=== PATIENT | male | born 1980 | race Caucasian/White ===

== ENCOUNTER 2019-06-27 07:46 | Day surgery (SDC) | payer OTHER ==
[~2019-06-27] VITALS: Ht 180.3 cm; Wt 93.0 kg
[~2019-06-27 07:46] MED LIST: VITAMIN D400 UNIT PO
--- NOTE | 2019-06-27 09:54 | NUR ---
06/27/19 0954 [address] 0941- PT ARRIVES TO PACU EASILY AROUSABLE TO VERBAL STIMULI. RESP EVEN AND UNLABORED. OXYGEN SAT HIGH 90'S TO 100% ON 3L VIA NC. PT REPORTS NO PAIN OR NAUSEA. 0954- OXYGEN TITRATED OFF.
--- NOTE | 2019-06-27 10:23 | OR ---
[facility] [address] [place], [place] [address] Signed DATE OF OPERATION: 06/27/2019 SURGEON: Tian Logan MD PREOPERATIVE DIAGNOSES: 1. Intermittent rectal bleeding. 2. Aunt with unspecified colitis. 3. Alternating constipation and diarrhea. 4. Left-sided abdominal pain. POSTOPERATIVE DIAGNOSIS: Minimal internal hemorrhoids. PROCEDURE: Colonoscopy with random colon biopsies. ESTIMATED BLOOD LOSS: None. INDICATIONS: Jerry is a 39-year-old gentleman, who as far back as 2002, has had at least three episodes of rectal bleeding. He describes a sigmoidoscopy in the office without sedation after an enema while he lived in [place], [place] in 2002. Apparently, they told him there were polyps, but they left them in place. He had another episode of rectal bleeding in 2018. Unfortunately, he just moved to our area and was then able to come in for his colonoscopy. Apparently, he had a digital rectal exam at that time and nothing was uncovered. He had another episode of rectal bleeding recently, so he is asked to see me for a full colonoscopy. He is quite convinced that his aunt has some type of colitis in the past. He thinks another relative may have diverticular disease. Otherwise, no colon cancer or polyps in the family. I gave Jerry a pamphlet on colonoscopy in the office and we reviewed that together in detail. He understands the nature of the test along with the risks including, but not limited to gas bloating, crampy abdominal pain, bleeding, perforation requiring surgery, and missed diagnosis. He also understands the need for IV conscious sedation. He had expressed understanding and wished to proceed. PROCEDURE NOTE: Jerry was taken into our endoscopy suite and placed in the left lateral decubitus position. He was given a total of 8 mg of Versed and 200 mcg of fentanyl to cover the case. A digital rectal exam was performed and this was unremarkable. Specifically, he Electronically Signed By: TIAN LOGAN MD 06/27/19 1023 PATIENT NAME: JERRY BROWNING OPERATIVE REPORT DATE OF : 80 REPORT #: [id number] PHYSICIAN: TIAN LOGAN MD PCP: ELROY LEVINE REPORT IS CONFIDENTIAL AND NOT TO BE RELEASED WITHOUT AUTHORIZATION [facility] [address] [place], [place] [address] Signed has excellent perianal hygiene. No evidence of any external hemorrhoids. No evidence of any fissures. He has good sphincter tone. There were no masses. The adult colonoscope was introduced and advanced into the cecum itself under direct visualization of the camera. It took a little extra sedation in order to get the camera all the way to the cecum. We could easily see the appendiceal orifice and ileocecal valve. We made several attempts to turn the colonoscope into the terminal ileum without success. Consequently, the scope was slowly withdrawn. We had taken random cold biopsies throughout for documentation. In addition, we took pictures throughout for documentation. We saw no pathology throughout his entire colon. No evidence of any inflammatory changes, no AV malformations, no diverticular disease. The rectum was unremarkable. Upon retroflexion of scope, he has very small minimal internal hemorrhoid columns. After this, the gas was suctioned out and the colonoscope removed. Jerry tolerated the procedure quite well. RECOMMENDATIONS: I will see Jerry back in my office in 7 to 14 days to review his results. MD GLENNA Nguyen/MODL /[id number] cc: MD Elroy Nguyen PA-C Copies: TIAN LOGAN MD ~ Electronically Signed By: TIAN LOGAN MD 06/27/19 1023 PATIENT NAME: NAMJERRY PENELOPE OPERATIVE REPORT DATE OF : 80 REPORT #: [id number] PHYSICIAN: TIAN LOGAN MD PCP: ELROY LEVINE PAC REPORT IS CONFIDENTIAL AND NOT TO BE RELEASED WITHOUT AUTHORIZATION
--- NOTE | 2019-06-28 11:42 | PATH ---
[facility] [address] [place], [place] [address] Signed SPECIMEN(S): A COLON SPECIMEN SOURCE: A. COLON CLINICAL HISTORY: Hx rectal bleeding, hx diarrhea. Random biopsies. MICROSCOPIC DESCRIPTION: Histologic sections of all submitted blocks are examined by light microscopy. These findings, together with the gross examination, support the pathologic diagnosis. FINAL PATHOLOGIC DIAGNOSIS: Colon, biopsy: - Fragments of colonic mucosa with no histopathologic abnormality. - Negative for dysplasia or malignancy. - See comment. COMMENT: Sections demonstrate colonic mucosa with no cryptitis, crypt abscesses, crypt architectural distortion, basal lymphoplasmacytosis, or granulomata. There are no viral cytopathic changes or infectious organisms seen on HE stain. Correlation with clinical findings is recommended. NAL:emb:C2NR GROSS DESCRIPTION: The specimen, labeled "AN, colon biopsy," is received in formalin and consists of three, 0.2-0.3 cm jimenez-brown tissue fragments. Specimen is entirely submitted in cassette (A1). AM (under the direct supervision of a pathologist) The Gross Description was prepared using a voice recognition system. The report was reviewed for accuracy; however, sound-alike word errors, addition and/or deletions may occur. If there is any question about this report, please contact Client Services. PERFORMING LABORATORY: The technical component was performed by [facility], [address] [place] [id number] ([employer]ical [employer] Control Party Manager: Chio Ventura MD; CLIA# [id number]). [facility], [address] [address] ([employer] Party Manager: James Astudillo MD; CLIA# PATIENT NAME: LORRAINE BROWNING PATHOLOGY DATE OF : 80 REPORT #: [id number] PHYSICIAN: MARGARITA PATHOLOGY PCP: ELROY LEVINE PAC REPORT IS CONFIDENTIAL AND NOT TO BE RELEASED WITHOUT AUTHORIZATION [facility] [address] [place], [place] [address] Signed [id number]). Diagnostician: Zainab Walters MD Pathologist Electronically Signed 06/28/2019 Copies: ~ PATIENT NAME: LORRAINE BROWNING PATHOLOGY DATE OF : 80 REPORT #: [id number] PHYSICIAN: MARGARITA PATHOLOGY PCP: ELROY LEVINE PAC REPORT IS CONFIDENTIAL AND NOT TO BE RELEASED WITHOUT AUTHORIZATION
== END 2019-06-27 10:30 | disposition home or self-care (01) ==
LOC: OPS 07:46 → DS 07:46 → OPS 09:00
PROVIDERS: Colon & Rectal Surgery
PROC: 0DBE8ZX Excision of Large Intestine, Via Natural or Artificial Opening Endoscopic, Diagnostic (ICD-10-PCS; principal; 2019-06-27 09:00)
DX: K64.8 Other hemorrhoids (principal); K59.00 Constipation, unspecified; R19.7 Diarrhea, unspecified; Z83.79 Family history of other diseases of the digestive system; Z98.890 Other specified postprocedural states; Z79.899 Other long term (current) drug therapy
CPT/HCPCS: 99153; G0500; J2250; J3010; J7121

== ENCOUNTER 2020-04-12 08:17 | Emergency (ER) | payer OTHER ==
[~2020-04-12] VITALS: Ht 180.3 cm; Wt 85.3 kg
[2020-04-12] MEDS ORDERED: ONDANSETRON ODT8 MG PO (09:23)
--- NOTE | 2020-04-12 14:13 | EKG ---
[facility] [address] [facility] [place], [place] [address] Signed Normal sinus rhythm Normal ECG No previous ECGs available Confirmed by JENNY CID MD ([id number]) on 04/12/2020 2:13:19 PM Electronically Signed By: JENNY CID MD 04/12/20 1413 PATIENT NAME: LORRAINE BROWNING PENELOPE Electrocardiogram DATE OF : 80 PHYSICIAN: JENNY CID MD REPORT #: [id number] REPORT IS CONFIDENTIAL AND NOT TO BE RELEASED WITHOUT AUTHORIZATION
== END 2020-04-12 09:47 | disposition home or self-care (01) ==
LOC: ED 08:17
DX: U07.1 COVID-19 (principal); J12.89 Other viral pneumonia
CPT/HCPCS: 93005; 93010; 99283-25